=== PATIENT | female | born 1955 | race Caucasian/White ===

== ENCOUNTER → 2020-05-13 | Outpatient (CLI) | payer OTHER ==
--- NOTE | 2020-05-13 09:34 | Diagnostic Imaging Report ---
EXAM: US ABDOMEN COMPLETE DATE: 05/13/2020 8:50 AM INDICATION: ^ANEMIA / HEP C COMPARISON: None TECHNIQUE: Transverse and longitudinal beltran scale and color doppler sonographic images of the abdomen were obtained. FINDINGS: LIVER 13.3 cm in the right midclavicular line. Normal echogenicity of the liver with normal contour, no masses. SPLEEN 9.1 cm in maximum diameter. Normal echogenicity, no masses. GALLBLADDER No gallbladder wall thickening, distension, stone, or pericholecystic fluid. Negative reported sonographic Ellis's sign. BILE DUCTS No intra nor extra-hepatic biliary dilation. Common bile duct measures 1.3cm PANCREAS: Visualized portions are normal. RIGHT KIDNEY: 9.7 cm Echogenicity: Normal Collecting System: No hydronephrosis Stones: None Cyst/Mass: None LEFT KIDNEY: 10.0 cm Echogenicity: Normal Collecting System: No hydronephrosis Stones: None Cyst/Mass: None VESSELS: Aorta: Visualized portions are within normal size limits Inferior Vena Cava: Visualized portions are normal Main Portal Vein: 0.8 cm, normal size with hepatopetal flow. FREE FLUID: None IMPRESSION: 1. No ultrasound evidence of cirrhosis or portal hypertension. No suspicious hepatic mass by ultrasound technique. 2. Extrahepatic CBD dilatation up to 1.3 cm. Correlate with lab values and consider CT or MRCP for further evaluation if clinically indicated. 3. Kidneys are unremarkable. Signed by: Rodolfo Carlin MD on 05/13/2020 9:31 AM
--- NOTE | 2020-05-13 09:37 | Diagnostic Imaging Report ---
HISTORY : Anemia COMPARISON : None Comment: Limited due to overlying bowel gas. Ultrasound examination of the pelvis was performed transabdominally. The uterus is homogeneous in echotexture. The uterus measures 5.9 x 2.4 x 3.6 cm. The endometrial stripe appears unremarkable and measures 0.3 cm in maximum thickness. The ovaries are not well visualized. There is no evidence of fluid in the cul-de-sac. IMPRESSION : Unremarkable transabdominal ultrasound of the uterus. Ovaries are not well visualized. No free fluid is visualized. Signed by: Rodolfo Carlin MD on 05/13/2020 9:33 AM
== END ==
LOC: US 08:18
PROVIDERS: ATTEND Internal Medicine Medical Oncology
DX: D64.9 Anemia, unspecified (principal); B19.20 Unspecified viral hepatitis C without hepatic coma
CPT/HCPCS: 76700; 76856